=== PATIENT | male | born 1950 | race Two or more races ===

== ENCOUNTER 2019-11-10 10:02 | Emergency (ER) | payer OTHER, SELFPAY ==
[~2019-11-10] VITALS: Ht 182.9 cm; Wt 68.0 kg
[2019-11-10 10:02] VITALS: BP 141/88
[~2019-11-10 10:02] MED LIST changes: -DOESNT KNOW MEDS
[2019-11-10] MEDS ORDERED: DOESNT KNOW MEDS (10:07)
== END 2019-11-10 11:03 | disposition home or self-care (01) ==
LOC: M ED 10:02
DX: L98.9 Disorder of the skin and subcutaneous tissue, unspecified (principal); F20.9 Schizophrenia, unspecified; R44.0 Auditory hallucinations; Z72.0 Tobacco use; F12.10 Cannabis abuse, uncomplicated; Z91.018 Allergy to other foods

== ENCOUNTER → 2019-11-10 | Outpatient (REF) | payer OTHER ==
[~2019-11-10] MED LIST: DEPA1TAB3 PO; DOESNT KNOW MEDS; RISP1TAB42 PO
== END ==
LOC: M LAB REF 17:08
PROVIDERS: ATTEND Physician Assistant
DX: D48.5 Neoplasm of uncertain behavior of skin (principal)

== ENCOUNTER → 2020-01-14 | Outpatient (REF) | payer OTHER ==
[~2020-01-14] MED LIST changes: +DOESNT KNOW MEDS
== END ==
LOC: M LAB REF 19:07
PROVIDERS: ATTEND Physician Assistant
DX: D48.9 Neoplasm of uncertain behavior, unspecified (principal)